=== PATIENT | female | born 1955 | race Caucasian/White ===

== ENCOUNTER 2019-09-30 08:04 | Observation (INO) ==
--- NOTE | 2019-09-09 13:29 | PAT Medication Instructions ---
Medication Instructions Date of Service September 09, 2019 Home Medications acetaminophen 500 mg PO DAILY PRN cholecalciferol (vitamin D3) [Vitamin D3] 50 mcg PO QAM levothyroxine 112 mcg PO QAM losartan 50 mg PO QAM metformin 500 mg PO BID metronidazole 1 applic TOPICAL DAILY potassium citrate 10 meq PO BID pseudoephedrine HCl 30 mg PO Q6H PRN rosuvastatin 10 mg PO QAM STOP taking 24 hours before surgery metronidazole 1 applic TOPICAL DAILY DO NOT take the morning of surgery cholecalciferol (vitamin D3) [Vitamin D3] 50 mcg PO QAM losartan 50 mg PO QAM metformin 500 mg PO BID potassium citrate 10 meq PO BID pseudoephedrine HCl 30 mg PO Q6H PRN Take morning of surgery With a small sip of water, OTHERWISE NOTHING TO EAT OR DRINK AFTER MIDNIGHT: acetaminophen 500 mg PO DAILY PRN (okay to take up to 4 hours prior to surgery if needed) levothyroxine 112 mcg PO QAM rosuvastatin 10 mg PO QAM Take evening before surgery acetaminophen 500 mg PO DAILY PRN (if needed) metformin 500 mg PO BID potassium citrate 10 meq PO BID pseudoephedrine HCl 30 mg PO Q6H PRN (if needed) Other Notes If you have any questions please call us at [phone] or [phone] or [phone] or [phone]
--- NOTE | 2019-09-10 13:59 | Anesthesiology Consultation ---
Date of Service September 10, 2019 Assessment & Plan (1) Encounter for pre-operative examination: - Awaiting surgeon-ordered PCP clearance scheduled 09/21 (Dr. Leblanc). - Check BSG AM DOS Chart Review Chart Review: Patient seen in Pre Admission Testing Teaching & Discussion Pre-Anesthesia Teaching/Discussion Notes: Instructed NPO after midnight before surgery,except medications with 15 cc of water. Medication instructions provided according to the PAT guidelines. History Surgery Operation Date: 09/30/19 08:15 Proposed Procedures p Right Total Knee Arthroplasty - Ronak Chiang MD Height/Weight Height: 5 ft 5 in Weight: 95 kg Allergies Allergy/AdvReac Type Severity Reaction Status Date / Time aspirin Allergy Unknown HIVES, Verified 12/02/14 08:26 SWELLING OF THROAT latex Allergy Unknown HIVES Verified 12/02/14 08:26 Medications Home Medications Medication Instructions Recorded Confirmed Last Taken acetaminophen 500 mg PO DAILY PRN 09/03/19 09/03/19 Unknown cholecalciferol (vitamin D3) 50 mcg PO QAM 09/03/19 09/03/19 Unknown [Vitamin D3] levothyroxine 112 mcg PO QAM 09/03/19 09/03/19 Unknown losartan 50 mg PO QAM 09/03/19 09/03/19 Unknown metformin 500 mg PO BID 09/03/19 09/03/19 Unknown metronidazole 1 applic TOPICAL DAILY 09/03/19 09/03/19 Unknown potassium citrate 10 meq PO BID 09/03/19 09/03/19 Unknown pseudoephedrine HCl 30 mg PO Q6H PRN 09/03/19 09/03/19 Unknown rosuvastatin 10 mg PO QAM 09/03/19 09/03/19 Unknown Past Medical History Medical History Diabetes mellitus, type 2 NIDDM Environmental allergies History of kidney stones Hyperlipidemia Hypertension Hypothyroidism Obesity Osteoarthritis Rosacea Sleep apnea no device Exercise / Class Metabolic Activity III < 4 Walking/Shop/Light housework (cane PRN) Past Family History Family History Aunt Family history of diabetes mellitus Past Surgical History Surgical History History of carpal tunnel surgery of left wrist History of tonsillectomy and adenoidectomy History of total left knee replacement (TKR) Left TKA: 12/02/14: SAB x 1 ar L3-L4 + PNB at [facility], subsequent left knee removal of hemovac drain: 12/04/14: LMA#4 at [facility] Hx of appendectomy Hx of bilateral cataract extraction Hx of section X4 Hx of colonoscopy Hx of cystoscopy SEVERAL Hx of lithotripsy Hx of shoulder surgery RIGHT Past Anesthesia History No Hx of Anesthesia Complications (except PONV/dizziness) and No Family Hx of Anesthesia Complications History of PONV History of PONV (+ PONV/dizziness x 2 episode- improved with prior scope patch use) and Hx of Motion Sickness Social History Smoking Status: Former smoker Do You Dip or Chew Tobacco: No Smoking End Date: Quit 5 YR AGO Hx Alcohol Use: No Hx Substance Use: No Review of Systems Patient denies chest pain, shortness of breath, reflux, cough, wheezing, palpitations. Physical Exam Vital Signs VITALS BP 129/86 P 96 TEMP 98.4 SP02 94%RA RESP 18 PHYSICAL Full neck and c-spine range of motion. Full TMJ range of motion. TMD 2.5 finger breaths Mallampati Score 2 Dentition: intact, several crowns/implant on sides/molars Lungs: clear throughout to auscultation Cardiac: regular rate and rhythm, no murmurs noted Spine: normal Carotid arteries: negative bruit Extremities: no edema Thick neck Testing Laboratory Results 09/10/19 14:26 09/10/19 14:26 PT 10.4 Seconds (9.0-12.0) 09/10/19 14:26 INR 1.0 (0.9-1.1) 09/10/19 14:26 APTT 26.9 Seconds (21.0-31.0) 09/10/19 14:26 Hemoglobin A1c 6.9 % (4.5-5.6) H 09/10/19 14:26 Urine Color Yellow 09/10/19 14:26 Urine Appearance Turbid (Clear) A 09/10/19 14:26 Urine pH 7.0 (4.5-7.5) 09/10/19 14:26 Ur Specific [place] 1.018 (1.000-1.030) 09/10/19 14:26 Urine Protein Negative (Negative) 09/10/19 14:26 Urine Glucose (UA) Negative (Negative) 09/10/19 14:26 Urine Ketones Negative (Negative) 09/10/19 14:26 Urine Nitrite Negative (Negative) 09/10/19 14:26 Ur Leukocyte Esterase Negative (Negative) 09/10/19 14:26 Urine WBC (Auto) 1-5 /hpf (0-5) 09/10/19 14:26 Urine RBC (Auto) 0-4 /hpf (0-4) 09/10/19 14:26 U Hyaline Cast (Auto) 1-5 /lpf (0-5) 09/10/19 14:26 U Epithel Cells (Auto) 5-10 /lpf (0-5) H 09/10/19 14:26 Urine Bacteria (Auto) Negative (Negative) 09/10/19 14:26 Blood Type O Positive 09/10/19 14:26 Antibody Screen NEGATIVE 09/10/19 14:26 Electrocardiogram Date: 09/10/19 SR with first degree AVB at 94bpm. No significant change compared to 11/09/14 per cardiology. Chest X-Ray Date: 09/10/19 Findings: + NAD Stress Test Date: 06/28/16 Type: exercise Exercise stress EKG negative for ischemia or infarction. Normal resting wall motion (all lindo hyperdynamic with exercise). EF 55%. 7 METS. >90% MPHR.
--- NOTE | 2019-09-10 14:48 | XRay Report ---
XR chest Pre-admission PA/Lat CLINICAL HISTORY: Preoperative chest COMPARISON STUDY: 11/09/2014 FINDINGS: The cardiac and mediastinal contours are normal. There is no evidence of focal pulmonary co nsolidation. There is no evidence of failure. No pleural effusions are visualized.[ IMPRESSION: No active disease in the chest. ACT 112: Negative or not required by law. Electronically signed by: Steve Molina M.D. 09/10/2019 2:47 PM
[2019-09-10 15:25] LABS: Basophils # (auto) 0.05 K/uL (0-0.2); Basophils % (auto) 0.5 %; Eosinophils # (auto) 0.24 K/uL (0-0.5); Eosinophils % (auto) 2.5 %; Hematocrit (blood only) 44.6 % (37-47); Hemoglobin 15.2 g/dL (12.0-16.0); Immature Granulocytes # (auto) 0.02 K/uL (0.00-0.02); Immature Granulocytes % (auto) 0.2 %; Lymphocytes # (auto) 3.64 K/uL (1.2-3.4); Lymphocytes % (auto) 38.6 %; Mean Corpuscular Hemoglobin 31.3 pg (25-34); Mean Corpuscular Hgb Conc 34.1 g/dL (32-36); Mean Corpuscular Volume 91.8 fL (80-100); Mean Platelet Volume 10.5 fL (7.4-10.4); Monocytes # (auto) 0.95 K/uL (0.11-0.59); Monocytes % (auto) 10.1 %; Neutrophils # (auto) 4.54 K/uL (1.4-6.5); Neutrophils % (auto) 48.1 %; Platelet Count 296 K/uL (130-400); RDW Standard Deviation 47.1 fL (36.4-46.3); Red Blood Count 4.86 M/uL (4.2-5.4); White Blood Count 9.44 K/uL (4.8-10.8)
[2019-09-10 15:38] LABS: Appearance Urine Turbid (Clear); Bacteria Urine Automated Negative (Negative); Bilirubin Urine Negative (Negative); Blood Urine Negative (Negative); Color Urine Yellow; Glucose Urine UA Negative (Negative); Ketones Urine Negative (Negative); Leukocyte Esterase Urine Negative (Negative); Nitrite Urine Negative (Negative); Protein Urine Negative (Negative); RBC Urine Automated 0-4 /hpf (0-4); Specific Gravity Urine 1.018 (1.000-1.030); Urobilinogen Urine Negative (Negative)
[2019-09-10 15:45] LABS: Albumin Level 3.6 gm/dl (3.4-5.0); BUN Creatinine Ratio 18.7 (10-20); Calcium 10.5 mg/dl (8.5-10.1); Creatinine Clr Calc Pharmacy 75.3 ml/min; Est GFR (African American) 82.7; Est GFR (Non-African American) 71.4; Potassium 4.4 mmol/L (3.5-5.1)
[2019-09-10 15:52] LABS: Partial Thromboplastin Time 26.9 Seconds (21.0-31.0); Prothrombin Time 10.4 Seconds (9.0-12.0)
--- NOTE | 2019-09-10 17:14 | Electrocardiogram Report ---
Test Reason : Blood Pressure : / mmHG Vent. Rate : 094 BPM Atrial Rate : 094 BPM P-R Int : 220 ms QRS Dur : 098 ms QT Int : 356 ms P-R-T Axes : 066 040 049 degrees QTc Int : 445 ms Sinus rhythm with 1st degree A-V block Otherwise normal ECG When compared with ECG of 09-NOV-2014 10:35, No significant change was found Confirmed by Aaron London ([id number]) on 09/10/2019 5:13:49 PM Referred By: Ronak Chiang Confirmed By:Aaron London
[2019-09-11 05:32] LABS: Estimated Average Glucose 151 mg/dl; Hemoglobin A1C 6.9 % (4.5-5.6)
--- NOTE | 2019-09-25 19:44 | History & Physical Report ---
Date of Service September 25, 2019 Assessment & Plan (1) Primary osteoarthritis of right knee: Treatment options discussed. She has failed conservative measures as above. Risks, benefits and alternatives to surgery including but not limited to infection, DVT, pain, stiffness, need for revision surgery, damage to blood vessels, damage to nerves, PE, , were discussed with the patient and they wish to proceed. Plan will be for right total knee arthroplasty at [facility] on 09/30/19. Will plan on Xarelto post operatively for DVT prophylaxis due to an aspirin allergy. Will plan on not using a Hemovac drain. May consider antibiotic prophylaxis with Cefadroxil x 1 week. We may also use Prineo/dermabond dressing vs alejandro for skin closure. All questions answered. She will follow up post operatively. History of Present Illness Chief Complaint: Right knee pain Primary Care Provider: Toney Leblanc 64 year old female with PMHx significant for HTN, high cholesterol, NEDRA, DM2, and hypothyroidism who presents with worsening right knee pain. She has previously underwent Left TKA and has done well. She has tried various conservative therapies including cortisone injections and viscoelastic injections and continues to have significant pain. She has difficulty completing her daily activities and would like to proceed with right total knee ar throplasty. Patient denies headaches, sweats, fevers, chills, double vision, blurred vision, cough, sore throat, dysphagia, chest pain, sob, wheezing, n/v/d/c, numbness, tingling, fatigue, urinary symptoms, mood disorders. ROS positive for right knee pain and stiffness. Allergies Allergy/AdvReac Type Severity Reaction Status Date / Time aspirin Allergy Unknown HIVES, Verified 12/02/14 08:26 SWELLING OF THROAT latex Allergy Unknown HIVES Verified 12/02/14 08:26 Home Medications Home Medications Medication Instructions Recorded Confirmed Type acetaminophen 500 mg PO DAILY PRN 09/03/19 09/03/19 History cholecalciferol (vitamin D3) 50 mcg PO QAM 09/03/19 09/03/19 History [Vitamin D3] levothyroxine 112 mcg PO QAM 09/03/19 09/03/19 History losartan 50 mg PO QAM 09/03/19 09/03/19 History metformin 500 mg PO BID 09/03/19 09/03/19 History metronidazole 1 applic TOPICAL DAILY 09/03/19 09/03/19 History potassium citrate 10 meq PO BID 09/03/19 09/03/19 History pseudoephedrine HCl 30 mg PO Q6H PRN 09/03/19 09/03/19 History rosuvastatin 10 mg PO QAM 09/03/19 09/03/19 History Past Med/Surg History Medical History Diabetes mellitus, type 2 NIDDM Environmental allergies History of kidney stones Hyperlipidemia Hypertension Hypothyroidism Obesity Osteoarthritis Rosacea Sleep apnea no device Surgical History History of carpal tunnel surgery of left wrist History of tonsillectomy and adenoidectomy History of total left knee replacement (TKR) Left TKA: 12/02/14: SAB x 1 ar L3-L4 + PNB at [facility], subsequent left knee removal of hemovac drain: 12/04/14: LMA#4 at [facility] Hx of appendectomy Hx of bilateral cataract extraction Hx of section X4 Hx of colonoscopy Hx of cystoscopy SEVERAL Hx of lithotripsy Hx of shoulder surgery RIGHT Family History Aunt Family history of diabetes mellitus Social History Preferred Language: Greenlandic Communication Ability: Effective Beliefs That Will Affect Care: None Current Living Situation: Spouse Feels Safe at Home: Yes Safety Concerns: Feels Safe At This Time Smoking Status: Former smoker Do You Dip or Chew Tobacco: No ; Smoking End Date: Quit 5 YR AGO ; Second Hand Exposure: No ; Hx Alcohol Use: No Hx Substance Use: No Review of Systems All systems reviewed & are unremarkable except as noted in HPI & below Physical Exam Constitutional: well developed and well nourished; no acute distress Eyes: PERRL, conjunctivae normal, anicteric sclerae ENMT: external ear and nose normal, oropharynx normal Neck: trachea midline, no thyromegaly Respiratory: normal respiratory effort, lungs clear to auscultation Cardiovascular: RRR, no murmur, no edema Musculoskeletal: Right knee-Medial joint line tenderness. ROM with crepitus 0- 130 with mild crepitus. She is stable to valgus and varus stress tests. Positive Oc's Skin: no rashes, warm and dry Neurologic: patellar DTR's 2+ bilat, sensation intact Psychiatric: A+Ox3, euthymic affect Results & Data Laboratory Results Lab Results 09/10/19 09/10/19 09/10/19 Range/Units 14:26 14:26 14:26 WBC 9.44 (4.8-10.8) K/uL RBC 4.86 (4.2-5.4) M/uL Hgb 15.2 (12.0-16.0) g/dL Hct 44.6 (37-47) % MCV 91.8 (80-100) fL MCH 31.3 (25-34) pg MCHC 34.1 (32-36) g/dL RDW Std Deviation 47.1 H (36.4-46.3) fL RDW Coeff of Chiquita 14.0 (11.5-14.5) % Plt Count 296 (130-400) K/uL MPV 10.5 H (7.4-10.4) fL Immature Gran % (Auto) 0.2 % Neut % (Auto) 48.1 % Lymph % (Auto) 38.6 % Faulk % (Auto) 10.1 % Eos % (Auto) 2.5 % Baso % (Auto) 0.5 % Immature Gran # (Auto) 0.02 (0.00-0.02) K/uL Neut # (Auto) 4.54 (1.4-6.5) K/uL Lymph # (Auto) 3.64 H (1.2-3.4) K/uL Faulk # (Auto) 0.95 H (0.11-0.59) K/uL Eos # (Auto) 0.24 (0-0.5) K/uL Baso # (Auto) 0.05 (0-0.2) K/uL PT 10.4 (9.0-12.0) Seconds INR 1.0 (0.9-1.1) APTT 26.9 (21.0-31.0) Seconds PTT Ratio 1.0 Sodium 137 (136-145) mmol/L Potassium 4.4 (3.5-5.1) mmol/L Chloride 105 (98-107) mmol/L Carbon Dioxide 30 (21-32) mmol/L Anion Gap 2.0 L (3-11) BUN 16 (7-18) mg/dl Creatinine 0.86 (0.6-1.2) mg/dl Est Cr Clr Drug Dosing 75.3 ml/min Est GFR ( Amer) 82.7 Est GFR (Non-Af Amer) 71.4 BUN/Creatinine Ratio 18.7 (10-20) Glucose 127 H (70-99) mg/dl Estimat Average Glucose mg/dl Hemoglobin A1c (4.5-5.6) % Calcium 10.5 H (8.5-10.1) mg/dl Albumin 3.6 (3.4-5.0) gm/dl Urine Color Urine Appearance (Clear) Urine pH (4.5-7.5) Ur Specific [place] (1.000-1.030) Urine Protein (Negative) Urine Glucose (UA) (Negative) Urine Ketones (Negative) Urine Blood (Negative) Urine Nitrite (Negative) Urine Bilirubin (Negative) Urine Urobilinogen (Negative) Ur Leukocyte Esterase (Negative) Urine WBC (Auto) (0-5) /hpf Urine RBC (Auto) (0-4) /hpf U Hyaline Cast (Auto) (0-5) /lpf U Epithel Cells (Auto) (0-5) /lpf Urine Bacteria (Auto) (Negative) Blood Type Antibody Screen 09/10/19 09/10/19 09/10/19 Range/Units 14:26 14:26 14:26 WBC (4.8-10.8) K/uL RBC (4.2-5.4) M/uL Hgb (12.0-16.0) g/dL Hct (37-47) % MCV (80-100) fL MCH (25-34) pg MCHC (32-36) g/dL RDW Std Deviation (36.4-46.3) fL RDW Coeff of Chiquita (11.5-14.5) % Plt Count (130-400) K/uL MPV (7.4-10.4) fL Immature Gran % (Auto) % Neut % (Auto) % Lymph % (Auto) % Faulk % (Auto) % Eos % (Auto) % Baso % (Auto) % Immature Gran # (Auto) (0.00-0.02) K/uL Neut # (Auto) (1.4-6.5) K/uL Lymph # (Auto) (1.2-3.4) K/uL Faulk # (Auto) (0.11-0.59) K/uL Eos # (Auto) (0-0.5) K/uL Baso # (Auto) (0-0.2) K/uL PT (9.0-12.0) Seconds INR (0.9-1.1) APTT (21.0-31.0) Seconds PTT Ratio Sodium (136-145) mmol/L Potassium (3.5-5.1) mmol/L Chloride (98-107) mmol/L Carbon Dioxide (21-32) mmol/L Anion Gap (3-11) BUN (7-18) mg/dl Creatinine (0.6-1.2) mg/dl Est Cr Clr Drug Dosing ml/min Est GFR ( Amer) Est GFR (Non-Af Amer) BUN/Creatinine Ratio (10-20) Glucose (70-99) mg/dl Estimat Average Glucose 151 mg/dl Hemoglobin A1c 6.9 H (4.5-5.6) % Calcium (8.5-10.1) mg/dl Albumin (3.4-5.0) gm/dl Urine Color Yellow Urine Appearance Turbid A (Clear) Urine pH 7.0 (4.5-7.5) Ur Specific [place] 1.018 (1.000-1.030) Urine Protein Negative (Negative) Urine Glucose (UA) Negative (Negative) Urine Ketones Negative (Negative) Urine Blood Negative (Negative) Urine Nitrite Negative (Negative) Urine Bilirubin Negative (Negative) Urine Urobilinogen Negative (Negative) Ur Leukocyte Esterase Negative (Negative) Urine WBC (Auto) 1-5 (0-5) /hpf Urine RBC (Auto) 0-4 (0-4) /hpf U Hyaline Cast (Auto) 1-5 (0-5) /lpf U Epithel Cells (Auto) 5-10 H (0-5) /lpf Urine Bacteria (Auto) Negative (Negative) Blood Type O Positive Antibody Screen NEGATIVE Diagnostic Findings Right knee: Bone on bone medial compartment with osteophyte formation medial tibial plateau and medial femoral condyle. Osteophyte lateral tibial plateau. Subchondral sclerosis. Osteophyte formation PF joint.
[~2019-09-30 08:04] MED LIST: ACETAMINOPHEN 500 MG TAB PO SCH; BUPIVACAINE 0.5 % 5 MG/1 ML PF 10ML VIAL ONE; BUPIVACAINE/EPINEPHRINE 0.25% 1:200,000 30 ML VIAL ONE; CEFAZOLIN 2000MG 2,000 MG/15 ML SYR IV SCH; CeleBREX 200 MG CAP PO SCH; FAMOTIDINE 20 MG TAB PO SCH; GABAPENTIN 600 MG DOSE PO SCH; LR 500ML BOLUS, THEN 15ML/HR IV SCH; METOCLOPRAMIDE HCL 10 MG TABLET PO SCH; ROPIVACAINE 0.5% HCL/PF 150 MG, BUPIVACAINE 0.5% MPF 30 ML, EPINEPHrine 30MG/30ML (OR U... INSTIL SCH; SCOPOLAMINE 1.5 MG TDSY TD SCH; SODIUM CHLORIDE 0.9% 1,000 ML IV SCH; TRANEXAMIC ACID 1,000 MG **IV Intra-op IV SCH; TRANEXAMIC ACID 1,000 MG **IV Pre-op IV SCH; [UNRECOGNIZED DRUG - REMARK] SCH; dexAMETHasone 4 MG TAB PO SCH
[2019-09-30] MEDS ORDERED: ORTHO JOINT ANESTHETIC ONE ×2 (08:05→09:39)
[2019-09-30] MEDS ORDERED: BACITRACIN INJ 50,000 UNIT VIAL ONE (08:05)
[2019-09-30] MEDS ORDERED: fentaNYL citrate 100 MCG/2 ML VIAL ONE (08:36)
[2019-09-30] MEDS ORDERED: MIDAZOLAM HCL 1 MG/ML 2ML VIAL ONE (08:36)
--- NOTE | 2019-09-30 08:42 | History & Physical Bridge Note ---
Date of Service September 30, 2019 History & Physical Bridge Note I have examined the patient, reviewed the History & Physical and in the interval since the performance of the History & Physical I have noted the following changes of clinical significance: no changes noted
[2019-09-30] MEDS ORDERED: Nursing to Pharmacy Communication ONE (08:48)
[2019-09-30] MEDS ORDERED: fentaNYL citrate 100 MCG/2 ML VIAL IV PRN (09:33)
[2019-09-30] MEDS ORDERED: ATROPINE SULFATE 0.1 MG/ML 10ML SYR IV PRN (09:33)
[2019-09-30] MEDS ORDERED: ePHEDrine sulfate 50 MG/ML AMP IV PRN (09:33)
[2019-09-30] MEDS ORDERED: ONDANSETRON INJ 2 MG/ML 2 ML VIAL IV PRN ×2 (09:33→13:14)
[2019-09-30] MEDS ORDERED: HYDROmorphone INJ 2 MG/ML SYR/VIAL IV PRN (09:33)
[2019-09-30] MEDS ORDERED: PROMETHAZINE HCL 12.5 MG in SODIUM CHLORIDE 0.9% 50 ML IV PRN (09:33)
[2019-09-30] MEDS ORDERED: LIDOCAINE HCL 2% 2 ML VIAL/AMP(20MG/ML) INFIL ONE (10:11)
[2019-09-30] MEDS ORDERED: PROPOFOL IV EMULSION 10 MG/ML 20 ML VIAL IV ONE (10:11)
--- NOTE | 2019-09-30 11:18 | Operative Report ---
Post Operative Report Pre & Post Diagnosis Operation Date: 09/30/19 09:55 Pre-Op Diagnosis: Right Knee Osteoarthritis Post-Op Diagnosis: Right Knee Osteoarthritis I identified the patient and participated in the time-out.: Yes Procedure Operation Date: 09/30/19 09:55 Actual Procedures p Right Total Knee Arthroplasty(Right) - Ronak Chiang MD Surgeon Ronak Chiang MD Corporate Safety Director Jose Daniel Cagle PA-C Estimated Blood Loss 20 Findings Consistent with Post-Op Diagnosis Specimens Bone and tissue Drains None Anesthesia Type MAC Spinal Regional Complications none Disposition Accompanied Patient To Recovery: No Disposition: Recovery Room Indications The patient is a 64-year-old female longstanding arthritic change the right knee. She is [id number] medial compartment. She is failed conservative measures including injection, rehab. She is allergic to nonsteroidal anti- inflammatories. She wishes to proceed with right total knee arthroplasty. Description of Procedure Risks benefits and alternatives of surgery including but not limited to infection, DVT, pain, stiffness, need for surgery, damage to blood vessels, damage to nerves or risks of anesthesia were discussed with the patient and they wished to proceed. The patient was identified and the laterality was confirmed and marked. They received a preoperative antibiotic as well as a spinal anesthetic and an abductor canal block. A well-padded tourniquet was applied and then the limb was prepped and draped in standard manner with ChloraPrep. The limb was exsanguinated and the tourniquet was inflated. I made a standard anterior incision. I sharply incised the skin then utilized Bovie electrocautery to achieve hemostasis. I made a medial parapatellar arthrotomy and mobilized the patella laterally. I then excised the anterior horns of the medial and lateral meniscus as well as the infrapatellar fat pad. I elevated a portion of the MCL off of the tibia. I then pinned into place a patient-matched distal femoral cutting guide and made my distal femoral resection. I then pinned into place the 5 in 1 femoral cutting guide. I made my anterior, posterior and chamfer cuts. I then excised the cruciates and the remaining portions of the menisci. I then pinned into place a patient- matched tibial cutting guide and made my tibial resection. I then pinned into place the tibial plate a utilizing alignment pollo to confirm rotation. I then cut for the post. Utilizing a lamina plating technician and I then removed posterior osteophytes off the femur. I then placed a trial femur into position and cut for the trochlear component. I then sequentially trialed to size the polyethylene until there was good soft tissue balancing and range of motion. I then prepared the patella with a freehand cut utilizing sagittal saw. I sized and drilled for the patella. There was good tracking to the patella no lateral release was needed. All the trial components were removed. The deep tissues were anesthetized with an ortho mix solution. Then with Simplex HV with gentamicin cement, I cemented my definitive components. Definitive components, Tapia and Nephew Chakaney 2: Femur 4 Tibia 3 Poly 10 Patella 32 oval A betadine soak was performed. The arthrotomy was closed with interrupted #1 Vicryl suture subcutaneous tissue was closed with interrupted 2-0 Vicryl suture. The skin was closed with with prineo. An Acticoat and Arianne dressing were placed. Sterile dressings were applied. All needle and sponge counts were correct at the end of the procedure patient was transferred to the PACU in stable condition without apparent complication. The PA-C was necessary for assistance with procedure for assistance in positioning, prepping, draping, retraction and closure. I attest to the content of the Intraoperative Record and any orders documented therein. Any exceptions are noted below.
--- NOTE | 2019-09-30 12:42 | XRay Report ---
XR knee RT 1 or 2V routine CLINICAL HISTORY: Surgical Post Op COMPARISON: Knee radiographs January 12, 2015. FINDINGS: Alignment of the total right knee arthroplasty is anatomic. No fracture or unexpected radi opaque foreign body. IMPRESSION: Expected findings following total right knee arthroplasty. ACT 112: Negative or not required by law. Electronically signed by: Francisco Freeman M.D. 09/30/2019 12:41 PM
--- NOTE | 2019-09-30 12:43 | Anesthesiology Progress Note ---
Date of Service September 30, 2019 Anesthesia Post Procedure Vital Signs Vital Signs: Temp Pulse Pulse Resp BP BP Pulse Ox 09/30/19 12:40 95 H 15 108/71 95 09/30/19 12:35 96 H 16 96/68 L 96 09/30/19 12:25 99 H 16 98/66 L 95 09/30/19 12:15 103 H 16 105/66 96 09/30/19 12:05 37.1 C 107 H 16 100/58 L 95 09/30/19 08:43 37.2 C 106 H 20 129/86 94 Transfer of Care Handoff Completed per policy Notes Mental Status: alert / awake / arousable and participated in evaluation Patient Amnestic to Procedure: Yes Nausea / Vomiting: adequately controlled Pain: adequately controlled Airway Patency, RR, SpO2: stable & adequate BP & HR: stable & adequate Hydration State: stable & adequate Anesthetic Complications: no major complications apparent and Pt Satisfied with anesthetic care
[2019-09-30] MEDS ORDERED: bisacodyL 10 MG SUPP PR PRN (13:14)
[2019-09-30] MEDS ORDERED: NALOXONE HCL 0.4 MG/1 ML VIAL/CARP IV PRN (13:14)
[2019-09-30] MEDS ORDERED: MAGNESIUM HYDROXIDE SUSP 30 ML UDC PO PRN (13:14)
[2019-09-30] MEDS ORDERED: HYDROmorphone INJ 0.5 MG/0.5 ML SYR IV PRN (13:14)
[2019-09-30] MEDS ORDERED: METOCLOPRAMIDE HCL INJ 5 MG/ML 2 ML VIAL IV PRN (13:14)
[2019-09-30] MEDS ORDERED: PHARMACY GLYCEMIC MGMT CONSULT SCH (13:39)
--- NOTE | 2019-09-30 13:39 | Pharmacy Report ---
Glycemic Control Consultation - Date of Service September 30, 2019 - Scope Scope: Glycemic Pharmacist consulted by Jose Daniel Cagle PA-C on 09/30/19 for glycemic control and to write orders per [facility] inpatient glycemic control protocol - Objective Weight: 91.6 kg Accuchecks BSG (last 24hrs): 09/30/19 09/30/19 08:28 12:09 POC Glucose 182 H 164 H HbA1c: Hemoglobin A1c 6.9 % (4.5-5.6) H 09/10/19 14:26 - Recent Pertinent Medications Outpatient Anti-diabetic Regimen: * Metformin 500mg PO BID * A1c = 6.9 % 09/10/19 Risk Factors for Insulin Resistance: * Steroids: Dexamethasone 8mg PO preop * Recent Surgery: s/p TKA * Diet: Type 2 DM - Assessment & Plan Assessment & Plan: ASSESSMENT: * 64 year old female s/p TKA. Type 2 DM managed on only metformin as outpatient, had PO steroid preop. * Oral agents are not recommended for inpatient use d/t drug interactions, changing PO intake, and difficulty titrating for acute hyper/hypoglycemia. ADA recommends re-initiating outpatient oral agents 1-2 days prior to discharge if/when appropriate if they were held on admission. * Will hold oral agents for admission and utilize SQ basal bolus insulin regimen which is the recommended regimen for inpatient glycemic control. * Will initiate weight based insulin dosing for insulin mag patient and titrate based on BSG trends. * Will give one time dose of NPH to cover effects of PO dexamethasone given preoperatively. Only 0.16unit/kg, as patient only had 1 time PO dose of dexamethasone, and BSG 164mg/dl and A1c 6.9%. * Will loosen CF/CR as steroid effects wear off. * ADA & AACE recommend a goal blood sugar range 140-180 mg/dl for the majority of critically ill & non-critically ill patients. However, more stringent targets may be selected in individual cases. Will utilize more stringent goal of 110-140mg/dl based on patient age & comorbidities. Additionally, tighter glycemic control is warranted to facilitate wound/infection healing. PLAN FOR INPATIENT GLYCEMIC CONTROL: * Holding outpatient oral diabetes medications * possibly restart metformin tomorrow based on SCr and if patient tolerating diet * Basal insulin * NPH 15 units SQ x 1 dose now * Bolus insulin * NovoLog per scale ACHS or Q6hrs while NPO * Goal Range: Low 110 mg/dL - High 140 mg/dL * Correction Factor: 15 mg/dL/unit * Nutritional / Prandial insulin per carb ratio of 1 unit per 6 grams CHO consumed * Please note that the plan above was derived based on current level of insulin resistance and hospital stress. These recommendations are appropriate for inpatient admission only. Plan of care upon discharge will need to be reassessed to avoid potential outpatient hypo/hyperglycemia. Thank you.
[2019-09-30] MEDS ORDERED: GLUCAGON FOR INJ 1 MG VIAL IM PRN (13:45)
[2019-09-30] MEDS ORDERED: GLUCOSE 10 TABS/TUBE PO PRN (13:45)
[2019-09-30] MEDS ORDERED: DEXTROSE 50% 50 ML SYRINGE IV PRN (13:45)
[2019-09-30] MEDS ORDERED: GLUCOSE 40% GEL 15 GM TUBE PO PRN (13:45)
[2019-09-30] MEDS ORDERED: NovoLIN-N (NPH) PER UNIT CHARGE SQ ONE (13:45)
[2019-09-30] MEDS ORDERED: CARBOHYDRATES FOR HYPOGLYCEMIA PO PRN (13:45)
[2019-09-30] MEDS: SODIUM CHLORIDE 0.9% 1000ML 1,000 ML IV SCH ×2 (14:34→23:27)
[2019-09-30] MEDS: INSULIN ASPART 100 UNITS/ML 3 ML PEN SC SCH ×3 (14:34→21:14)
--- NOTE | 2019-09-30 14:54 | Hospitalist Consultation ---
Date of Consultation September 30, 2019 Assessment & Plan (1) Primary osteoarthritis of right knee: s/p R TKA on 09/[address] Chiang Pre-op Hb 15.2 As per ortho (2) Sleep apnea: States untx (3) Hypothyroidism: continue home meds (4) Hypertension: continue home meds (5) Hyperlipidemia: continue home meds (6) Diabetes mellitus, type 2: Resume metformin once reliable PO intake SSI PRN A1c 6.9 (7) DVT prophylaxis: As per ortho History of Present Illness Attending Physician: Ronak Chiang MD History of Present Illness 64 y/o F who was admitted on 09/30 s/p R TKA with Dr. Chiang. Pt is doing well post-op. She has no pain at this time. Tolerating PO without issue. Pt denies fever, SOB, chest pain, abd pain, n/v/c/d, LE swelling. Allergies Allergy/AdvReac Type Severity Reaction Status Date / Time aspirin Allergy Unknown HIVES, Verified 12/02/14 08:26 SWELLING OF THROAT latex Allergy Unknown HIVES Verified 12/02/14 08:26 methylprednisolone Allergy Shakiness Verified 09/30/19 08:27 [From Medrol] Home Medications Home Medications Medication Instructions Recorded Confirmed Type acetaminophen 500 mg PO DAILY PRN 09/03/19 09/30/19 History cholecalciferol (vitamin D3) 50 mcg PO QAM 09/03/19 09/30/19 History [Vitamin D3] levothyroxine 112 mcg PO QAM 09/03/19 09/30/19 History losartan 50 mg PO QAM 09/03/19 09/30/19 History metformin 500 mg PO BID 09/03/19 09/30/19 History metronidazole 1 applic TOPICAL DAILY 09/03/19 09/30/19 History potassium citrate 10 meq PO BID 09/03/19 09/30/19 History pseudoephedrine HCl 30 mg PO Q6H PRN 09/03/19 09/30/19 History rosuvastatin 10 mg PO QAM 09/03/19 09/30/19 History Patient History Medical History Diabetes mellitus, type 2 NIDDM Environmental allergies History of kidney stones Hyperlipidemia Hypertension Hypothyroidism Obesity Osteoarthritis Rosacea Sleep apnea no device Surgical History History of carpal tunnel surgery of left wrist History of tonsillectomy and adenoidectomy History of total left knee replacement (TKR) Left TKA: 12/02/14: SAB x 1 ar L3-L4 + PNB at [facility], subsequent left knee removal of hemovac drain: 12/04/14: LMA#4 at [facility] Hx of appendectomy Hx of bilateral cataract extraction Hx of section X4 Hx of colonoscopy Hx of cystoscopy SEVERAL Hx of lithotripsy Hx of shoulder surgery RIGHT Family History Aunt Family history of diabetes mellitus Social History Preferred Language: Surinamese Communication Ability: Effective Beliefs That Will Affect Care: None Current Living Situation: Spouse Feels Safe at Home: Yes Safety Concerns: Feels Safe At This Time Smoking Status: Former smoker Do You Dip or Chew Tobacco: No ; Smoking End Date: Quit 5 YR AGO ; Second Hand Exposure: No ; Hx Alcohol Use: No Hx Substance Use: No Review of Systems Review of Systems: Pertinent positives and negatives reviewed in HPI--all others negative Physical Exam Constitutional: WD/WN, vitals as above Eyes: normal visual medina by confrontation and + anicteric sclerae Neck: normal visual inspection and trachea midline Respiratory: normal respiratory effort, lungs clear to auscultation Cardiovascular: Rate/Rhythm: regular rate and regular rhythm Gastrointestinal (Abdomen): Inspection/Auscultation: abdomen not distended Percussion/Palpation: abdomen soft; abdomen nontender Musculoskeletal: Head/Neck/Chest: normocephalic and head atraumatic negative for edema, peripheral pulses intact Skin: no rashes, warm and dry Neurologic: awake; not confused Speech / Cognition: normal speech Psychiatric: A+Ox3, euthymic affect Results & Data ([facility]) Vital Signs (Past 12 Hours) Vital Signs Temp Pulse Pulse Resp BP BP Pulse Ox 09/30/19 14:15 36.9 C 84 16 102/72 96 09/30/19 13:45 82 18 104/73 96 09/30/19 13:15 37.0 C 87 18 103/69 97 09/30/19 13:00 37.2 C 93 H 17 102/73 95 09/30/19 12:50 91 H 16 98/70 L 98 09/30/19 12:40 95 H 15 108/71 95 09/30/19 12:35 96 H 16 96/68 L 96 09/30/19 12:25 99 H 16 98/66 L 95 09/30/19 12:15 103 H 16 105/66 96 09/30/19 12:05 37.1 C 107 H 16 100/58 L 95 09/30/19 08:43 37.2 C 106 H 20 129/86 94 Diagnostic Findings CXR: neg for acute PG Care Time/CCT Total # of Minutes Spent Total Time Spent with Patient: Total time spent is greater than 50% in coordination of care (as documented) at patient's floor/unit and/or counseling patient: Coding Level of Care Code 44299 Inpt Consult Level 4 Diagnoses Primary osteoarthritis of right knee M17.11 Sleep apnea G47.30 Hypothyroidism E03.9 Hypertension I10 Hyperlipidemia E78.5 Diabetes mellitus, type 2 E11.9 DVT prophylaxis Z29.9
[2019-09-30] MEDS: CHECK SCOPOLAMINE PATCH PLACEMENT SCH ×2 (15:24→23:27)
[2019-09-30] MEDS: ACETAMINOPHEN 500 MG TAB PO SCH (16:22)
[2019-09-30] MEDS: CEFAZOLIN 2000MG 2,000 MG/15 ML SYR IV SCH (18:31)
[2019-09-30] MEDS: DOCUSATE SODIUM 100 MG CAP PO SCH (21:15)
[2019-09-30] MEDS: SENNA 8.6 MG TAB PO SCH (21:15)
[2019-09-30] MEDS: POTASSIUM CITRATE 10 MEQ TAB PO SCH (21:15)
[2019-09-30] MEDS: OXYCODONE HCL IR 5 MG TAB (IMMEDIATE RELEASE) PO PRN (22:11)
[2019-10-01] MEDS: CEFAZOLIN 2000MG 2,000 MG/15 ML SYR IV SCH (02:07)
[2019-10-01 04:58] LABS: Hematocrit (blood only) 36.7 % (37-47); Hemoglobin 12.5 g/dL (12.0-16.0); Mean Corpuscular Hemoglobin 30.6 pg (25-34); Mean Corpuscular Hgb Conc 34.1 g/dL (32-36); Mean Platelet Volume 10.3 fL (7.4-10.4); Platelet Count 241 K/uL (130-400); Red Blood Count 4.08 M/uL (4.2-5.4); White Blood Count 15.18 K/uL (4.8-10.8)
[2019-10-01] MEDS: OXYCODONE HCL IR 5 MG TAB (IMMEDIATE RELEASE) PO PRN ×4 (05:06→21:11)
[2019-10-01] MEDS: ACETAMINOPHEN 500 MG TAB PO SCH ×3 (05:07→21:10)
[2019-10-01] MEDS: LEVOTHYROXINE SODIUM 112 MCG TABLET PO SCH (05:07)
[2019-10-01 05:30] LABS: BUN Creatinine Ratio 25.1 (10-20); Calcium 9.4 mg/dl (8.5-10.1); Creatinine Clr Calc Pharmacy 63.6 ml/min; Est GFR (Non-African American) 59.5; Potassium 3.9 mmol/L (3.5-5.1)
--- NOTE | 2019-10-01 07:13 | Orthopedic Progress Note ---
Date of Service October 01, 2019 Assessment & Plan (1) S/P total knee arthroplasty: POD#1 Right TKA -Pain management -DVT prophylaxis-Xarelto 10mg QD x 1 mo -PT/OT -AM labs- hemoglobin 12.5 this am. Acute blood loss anemia surgical loss vs dilutional effect -Discharge planning-home with HHPT likely tomorrow. Will discharge with 1 week fo Cefadroxil as antibiotic prophyalxis. Subjective Patient is POD#1 right TKA. She is doing well, has some stiffness but pain well controlled. She has no other complaints. Denies chest pain, sob, fever/chills, dizziness, n/v/d. Review of Systems Review of Systems: All systems reviewed & are unremarkable except as noted in HPI & below Physical Exam Physical Exam: Resting in bed comfortably. Dressing to right knee is c/d/i. Calves are soft and nontender. Distally n/v status and sensation intact. Toes mobile, good dorsiflexion. Constitutional: well developed and well nourished; no acute distress Results & Data ([facility]) Vital Signs (Past 12 Hours) Vital Signs Temp Pulse Resp BP BP Pulse Ox 10/01/19 03:11 37.1 C 63 14 110/73 94 09/30/19 23:23 36.5 C 68 16 103/67 96 09/30/19 22:46 36.6 C 60 16 103/66 96 09/30/19 19:28 36.3 C L 71 16 95/62 L 95 Laboratory Results H & H 09/10/19 10/01/19 Range/Units 14:26 04:40 Hgb 15.2 12.5 (12.0-16.0) g/dL Hct 44.6 36.7 L (37-47) % Coagulation 09/10/19 Range/Units 14:26 INR 1.0 (0.9-1.1) (1) S/P total knee arthroplasty Laterality: right Qualified Code(s): Z96.651 - Presence of right artificial knee joint
--- NOTE | 2019-10-01 08:42 | Anesthesiology Progress Note ---
Date of Service October 01, 2019 Anesthesia Post Procedure Vital Signs Vital Signs: Temp Pulse Pulse Resp BP BP Pulse Ox 10/01/19 07:39 36.4 C L 10/01/19 07:12 61 16 107/73 94 10/01/19 03:11 37.1 C 63 14 110/73 94 09/30/19 23:23 36.5 C 68 16 103/67 96 09/30/19 22:46 36.6 C 60 16 103/66 96 09/30/19 19:28 36.3 C L 71 16 95/62 L 95 09/30/19 16:19 36.5 C 84 16 106/71 97/66 L 95 09/30/19 15:19 36.4 C L 84 14 108/74 97 09/30/19 14:15 36.9 C 84 16 102/72 96 09/30/19 13:45 82 18 104/73 96 09/30/19 13:15 37.0 C 87 18 103/69 97 09/30/19 13:00 37.2 C 93 H 17 102/73 95 09/30/19 12:50 91 H 16 98/70 L 98 09/30/19 12:40 95 H 15 108/71 95 09/30/19 12:35 96 H 16 96/68 L 96 09/30/19 12:25 99 H 16 98/66 L 95 09/30/19 12:15 103 H 16 105/66 96 09/30/19 12:05 37.1 C 107 H 16 100/58 L 95 09/30/19 08:43 37.2 C 106 H 20 129/86 94 Pain Intensity Right Knee: Pain Intensity: 5 Notes Mental Status: alert / awake / arousable and participated in evaluation Patient Amnestic to Procedure: Yes Nausea / Vomiting: adequately controlled Pain: adequately controlled Airway Patency, RR, SpO2: stable & adequate BP & HR: stable & adequate Hydration State: stable & adequate Neuraxial Anesthesia: was administered and sensory block resolved Anesthetic Complications: no major complications apparent and Pt Satisfied with anesthetic care
[2019-10-01] MEDS: ROSUVASTATIN CALCIUM 10 MG TAB PO SCH (09:01)
[2019-10-01] MEDS: LOSARTAN POTASSIUM 50 MG TAB PO SCH (09:01)
[2019-10-01] MEDS: CHOLECALCIFEROL (VITAMIN D) 400 UNITS TABLET PO SCH (09:01)
[2019-10-01] MEDS: DOCUSATE SODIUM 100 MG CAP PO SCH ×2 (09:01→17:22)
[2019-10-01] MEDS: POTASSIUM CITRATE 10 MEQ TAB PO SCH ×2 (09:01→21:10)
[2019-10-01] MEDS: MULTIVITAMIN TAB PO SCH (09:01)
[2019-10-01] MEDS: INSULIN ASPART 100 UNITS/ML 3 ML PEN SC SCH ×4 (09:04→21:09)
[2019-10-01] MEDS: RIVAROXABAN 10 MG TABLET PO SCH (09:53)
--- NOTE | 2019-10-01 13:26 | Hospitalist Progress Note ---
Date of Service October 01, 2019 Assessment & Plan (1) Primary osteoarthritis of right knee: s/p R TKA on 09/[address] Chiang Pre-op Hb 15.2 As per ortho, planning for cefadroxil x1 week for prophylaxis (2) Sleep apnea: States untx (3) Hypothyroidism: continue home meds (4) Hypertension: continue home meds (5) Hyperlipidemia: continue home meds (6) Diabetes mellitus, type 2: Resume metformin once reliable PO intake SSI PRN A1c 6.9 (7) DVT prophylaxis: As per ortho Subjective Pt feels she is doing as expected. Some pain to the operative site, but what she expected and is tolerating. No issues with PO intake. Pt denies fever, SOB, chest pain, abd pain, n/v/c/d, LE swelling. Review of Systems Review of Systems: Pertinent positives and negatives reviewed in HPI--all others negative Physical Exam Constitutional: WD/WN, vitals as above Eyes: normal visual medina by confrontation and + anicteric sclerae Neck: normal visual inspection and trachea midline Respiratory: normal respiratory effort, lungs clear to auscultation Cardiovascular: Rate/Rhythm: regular rate and regular rhythm Gastrointestinal (Abdomen): Inspection/Auscultation: abdomen not distended Percussion/Palpation: abdomen soft; abdomen nontender Musculoskeletal: Head/Neck/Chest: normocephalic and head atraumatic neg LE swelling Skin: no rashes, warm and dry Neurologic: awake; not confused Speech / Cognition: normal speech Psychiatric: A+Ox3, euthymic affect Results & Data ([facility]) Vital Signs (Past 12 Hours) Vital Signs Temp Pulse Resp BP BP Pulse Ox 10/01/19 07:39 36.4 C L 10/01/19 07:12 61 16 107/73 94 10/01/19 03:11 37.1 C 63 14 110/73 94 PG Care Time/CCT Total # of Minutes Spent Total Time Spent with Patient: Total time spent is greater than 50% in coordination of care (as documented) at patient's floor/unit and/or counseling patient: Coding Level of Care Code 91979 Inpt Consult Level 3 Diagnoses Primary osteoarthritis of right knee M17.11 Sleep apnea G47.30 Hypothyroidism E03.9 Hypertension I10 Hyperlipidemia E78.5 Diabetes mellitus, type 2 E11.9 DVT prophylaxis Z29.9
[2019-10-01] MEDS: SENNA 8.6 MG TAB PO SCH (17:22)
[2019-10-02] MEDS: LEVOTHYROXINE SODIUM 112 MCG TABLET PO SCH (05:11)
[2019-10-02] MEDS: ACETAMINOPHEN 500 MG TAB PO SCH (05:11)
[2019-10-02] MEDS: OXYCODONE HCL IR 5 MG TAB (IMMEDIATE RELEASE) PO PRN (07:44)
[2019-10-02] MEDS: CHOLECALCIFEROL (VITAMIN D) 400 UNITS TABLET PO SCH (07:45)
[2019-10-02] MEDS: ROSUVASTATIN CALCIUM 10 MG TAB PO SCH (07:45)
[2019-10-02] MEDS: LOSARTAN POTASSIUM 50 MG TAB PO SCH (07:45)
[2019-10-02] MEDS: MULTIVITAMIN TAB PO SCH (07:45)
[2019-10-02] MEDS: POTASSIUM CITRATE 10 MEQ TAB PO SCH (07:45)
[2019-10-02] MEDS: DOCUSATE SODIUM 100 MG CAP PO SCH (07:45)
[2019-10-02] MEDS: RIVAROXABAN 10 MG TABLET PO SCH (07:46)
[2019-10-02] MEDS: INSULIN ASPART 100 UNITS/ML 3 ML PEN SC SCH (07:49)
[2019-10-02] MEDS ORDERED: METFORMIN HCL 500 MG TAB PO SCH (08:00)
--- NOTE | 2019-10-02 08:15 | Orthopedic Progress Note ---
Date of Service October 02, 2019 Assessment & Plan (1) S/P total knee arthroplasty: POD#2 Right TKA -Pain management -DVT prophylaxis-Xarelto 10mg QD x 1 mo -PT/OT -Discharge planning-home with outpatient PT. Will discharge with 1 week fo Cefadroxil as antibiotic prophyalxis. Subjective Postop day 2 status post right TKA. Patient is sitting up in bed awake and alert. She is eating breakfast. Pain is controlled although she is having some mild soreness this morning. She denies any shortness of breath, chest pain, lightheadedness, nausea or vomiting. She states that she is hoping to go home today. Physical Exam Physical Exam: Silverlon dressing is clean, dry, and intact. There is minimal drainage in the dressing window. Calves are soft nontender. Neurovascular is intact. Toes are mobile. Results & Data ([facility]) Vital Signs (Past 12 Hours) Vital Signs Temp Pulse Resp BP BP Pulse Ox 10/02/19 06:26 37.0 C 75 18 124/81 93 10/01/19 22:51 37.1 C 75 16 115/78 95 (1) S/P total knee arthroplasty Laterality: right Qualified Code(s): Z96.651 - Presence of right artificial knee joint
--- NOTE | 2019-10-02 12:26 | Hospitalist Progress Note ---
Date of Service October 02, 2019 Assessment & Plan (1) Primary osteoarthritis of right knee: s/p R TKA on 09/[address] Chiang Pre-op Hb 15.2 As per ortho, planning for cefadroxil x1 week for prophylaxis (2) Sleep apnea: States untx (3) Hypothyroidism: continue home meds (4) Hypertension: continue home meds (5) Hyperlipidemia: continue home meds (6) Diabetes mellitus, type 2: Resume metformin once reliable PO intake SSI PRN A1c 6.9 (7) DVT prophylaxis: As per ortho Subjective Pt continues to do well. Having pain to the R knee, but reasonable. She has hx of L TKA and states this is a similar course. Tolerating PO without issue. Pt denies fever, SOB, chest pain, abd pain, n/v/c/d. She has minor swelling around the knee today. Planning for d/c home later today. Review of Systems Review of Systems: Pertinent positives and negatives reviewed in HPI--all others negative Physical Exam Constitutional: WD/WN, vitals as above Eyes: normal visual medina by confrontation and + anicteric sclerae Neck: normal visual inspection and trachea midline Respiratory: normal respiratory effort, lungs clear to auscultation Cardiovascular: Rate/Rhythm: regular rate and regular rhythm Gastrointestinal (Abdomen): Inspection/Auscultation: abdomen not distended Percussion/Palpation: abdomen soft; abdomen nontender Musculoskeletal: Head/Neck/Chest: normocephalic and head atraumatic minor swelling around R knee Skin: no rashes, warm and dry Neurologic: awake; not confused Speech / Cognition: normal speech Psychiatric: A+Ox3, euthymic affect Results & Data ([facility]) Vital Signs (Past 12 Hours) Vital Signs Temp Pulse Resp BP BP Pulse Ox 10/02/19 11:11 99 10/02/19 09:56 37.0 C 75 18 124/81 115/78 93 10/02/19 06:26 37.0 C 75 18 124/81 93 PG Care Time/CCT Total # of Minutes Spent Total Time Spent with Patient: Total time spent is greater than 50% in coordination of care (as documented) at patient's floor/unit and/or counseling patient: Coding Level of Care Code 11432 Inpt Consult Level 2 Diagnoses Primary osteoarthritis of right knee M17.11 Sleep apnea G47.30 Hypothyroidism E03.9 Hypertension I10 Hyperlipidemia E78.5 Diabetes mellitus, type 2 E11.9 DVT prophylaxis Z29.9
--- NOTE | 2019-10-03 15:11 | Discharge Summary ---
Date of Service October 03, 2019 Admission HPI Per Admitting Provider 64 year old female with PMHx significant for HTN, high cholesterol, NEDRA, DM2, and hypothyroidism who presents with worsening right knee pain. She has previously underwent Left TKA and has done well. She has tried various conservative therapies including cortisone injections and viscoelastic injections and continues to have significant pain. She has difficulty completing her daily activities and would like to proceed with right total knee arthroplasty. Patient denies headaches, sweats, fevers, chills, double vision, blurred vision, cough, sore throat, dysphagia, chest pain, sob, wheezing, n/v/d/c, numbness, tingling, fatigue, urinary symptoms, mood disorders. ROS positive for right knee pain and stiffness. Admission Exam Per Admitting Provider Constitutional: well developed and well nourished; no acute distress Eyes: PERRL, conjunctivae normal, anicteric sclerae ENMT: external ear and nose normal, oropharynx normal Neck: trachea midline, no thyromegaly Respiratory: normal respiratory effort, lungs clear to auscultation Cardiovascular: RRR, no murmur, no edema Musculoskeletal: Right knee-Medial joint line tenderness. ROM with crepitus 0-130 with mild crepitus. She is stable to valgus and varus stress tests. Positive Oc's Skin: no rashes, warm and dry Neurologic: patellar DTR's 2+ bilat, sensation intact Psychiatric: A+Ox3, euthymic affect Principal Diagnosis Right knee osteoarthritis Discharge Exam Constitutional well developed and well nourished; no acute distress Eyes PERRL, conjunctivae normal, anicteric sclerae ENMT external ear and nose normal, oropharynx normal Neck trachea midline, no thyromegaly Respiratory normal respiratory effort, lungs clear to auscultation Cardiovascular RRR, no murmur, no edema Skin no rashes, warm and dry Neurologic patellar DTR's 2+ bilat, sensation intact Psychiatric A+Ox3, euthymic affect Discharge Data Allergies Allergy/AdvReac Type Severity Reaction Status Date / Time aspirin Allergy Unknown HIVES, Verified 12/02/14 08:26 SWELLING OF THROAT latex Allergy Unknown HIVES Verified 12/02/14 08:26 methylprednisolone Allergy Shakiness Verified 09/30/19 08:27 [From Medrol] Consultations 09/30/19 13:14 Consult Case Management - Discharge Planning Routine Consult Hospitalist Routine Procedures Performed Operation Date: 09/30/19 09:55 Actual Procedures p Right Total Knee Arthroplasty(Right) - Ronak Chiang MD Ordered Studies 09/30/19 05:00 US - OR guided needle placemen Routine Hospital Course (1) S/P total knee arthroplasty: Patient presented for same day admission following Right total knee arthroplasty on 09/30/19. She tolerated procedure well. The Patient had an uneventful hospital course. Post-operatively, her activity was progressed and well tolerated. They participated in PT with ambulation distance of 320 feet. ROM of operative knee reached 90 degrees. Labs remained stable- lowest hemoglobin recorded: 12.5. Dr. Sonia Marie of medical service was consulted for medical management during admission. Pain controlled on oral medications. Please refer to daily progress notes and PT notes for complete details. After exam on 10/02/19, patient was felt to be stable for discharge home with plans on outpatient PT. She was discharged with 1 week of Cefadroxil for antibiotic prophylaxis with her history of diabetes. Patient will f/u in the office in about 2 weeks for further evaluation including x-rays and incision check, sooner if having any issues or concerns. Lab Results 09/10/19 09/10/19 09/10/19 Range/Units 14:26 14:26 14:26 WBC 9.44 (4.8-10.8) K/uL RBC 4.86 (4.2-5.4) M/uL Hgb 15.2 (12.0-16.0) g/dL Hct 44.6 (37-47) % MCV 91.8 (80-100) fL MCH 31.3 (25-34) pg MCHC 34.1 (32-36) g/dL RDW Std Deviation 47.1 H (36.4-46.3) fL RDW Coeff of Chiquita 14.0 (11.5-14.5) % Plt Count 296 (130-400) K/uL MPV 10.5 H (7.4-10.4) fL Immature Gran % (Auto) 0.2 % Neut % (Auto) 48.1 % Lymph % (Auto) 38.6 % [place] % (Auto) 10.1 % Eos % (Auto) 2.5 % Baso % (Auto) 0.5 % Immature Gran # (Auto) 0.02 (0.00-0.02) K/uL Neut # (Auto) 4.54 (1.4-6.5) K/uL Lymph # (Auto) 3.64 H (1.2-3.4) K/uL [place] # (Auto) 0.95 H (0.11-0.59) K/uL Eos # (Auto) 0.24 (0-0.5) K/uL Baso # (Auto) 0.05 (0-0.2) K/uL PT 10.4 (9.0-12.0) Seconds INR 1.0 (0.9-1.1) APTT 26.9 (21.0-31.0) Seconds PTT Ratio 1.0 Sodium 137 (136-145) mmol/L Potassium 4.4 (3.5-5.1) mmol/L Chloride 105 (98-107) mmol/L Carbon Dioxide 30 (21-32) mmol/L Anion Gap 2.0 L (3-11) BUN 16 (7-18) mg/dl Creatinine 0.86 (0.6-1.2) mg/dl Est Cr Clr Drug Dosing 75.3 ml/min Est GFR ( Amer) 82.7 Est GFR (Non-Af Amer) 71.4 BUN/Creatinine Ratio 18.7 (10-20) Glucose 127 H (70-99) mg/dl POC Glucose (70-99) mg/dl Estimat Average Glucose mg/dl Hemoglobin A1c (4.5-5.6) % Calcium 10.5 H (8.5-10.1) mg/dl Albumin 3.6 (3.4-5.0) gm/dl Urine Color Urine Appearance (Clear) Urine pH (4.5-7.5) Ur Specific [place] (1.000-1.030) Urine Protein (Negative) Urine Glucose (UA) (Negative) Urine Ketones (Negative) Urine Blood (Negative) Urine Nitrite (Negative) Urine Bilirubin (Negative) Urine Urobilinogen (Negative) Ur Leukocyte Esterase (Negative) Urine WBC (Auto) (0-5) /hpf Urine RBC (Auto) (0-4) /hpf U Hyaline Cast (Auto) (0-5) /lpf U Epithel Cells (Auto) (0-5) /lpf Urine Bacteria (Auto) (Negative) Blood Type Antibody Screen 09/10/19 09/10/19 09/10/19 Range/Units 14:26 14:26 14:26 WBC (4.8-10.8) K/uL RBC (4.2-5.4) M/uL Hgb (12.0-16.0) g/dL Hct (37-47) % MCV (80-100) fL MCH (25-34) pg MCHC (32-36) g/dL RDW Std Deviation (36.4-46.3) fL RDW Coeff of Chiquita (11.5-14.5) % Plt Count (130-400) K/uL MPV (7.4-10.4) fL Immature Gran % (Auto) % Neut % (Auto) % Lymph % (Auto) % [place] % (Auto) % Eos % (Auto) % Baso % (Auto) % Immature Gran # (Auto) (0.00-0.02) K/uL Neut # (Auto) (1.4-6.5) K/uL Lymph # (Auto) (1.2-3.4) K/uL [place] # (Auto) (0.11-0.59) K/uL Eos # (Auto) (0-0.5) K/uL Baso # (Auto) (0-0.2) K/uL PT (9.0-12.0) Seconds INR (0.9-1.1) APTT (21.0-31.0) Seconds PTT Ratio Sodium (136-145) mmol/L Potassium (3.5-5.1) mmol/L Chloride (98-107) mmol/L Carbon Dioxide (21-32) mmol/L Anion Gap (3-11) BUN (7-18) mg/dl Creatinine (0.6-1.2) mg/dl Est Cr Clr Drug Dosing ml/min Est GFR ( Amer) Est GFR (Non-Af Amer) BUN/Creatinine Ratio (10-20) Glucose (70-99) mg/dl POC Glucose (70-99) mg/dl Estimat Average Glucose 151 mg/dl Hemoglobin A1c 6.9 H (4.5-5.6) % Calcium (8.5-10.1) mg/dl Albumin (3.4-5.0) gm/dl Urine Color Yellow Urine Appearance Turbid A (Clear) Urine pH 7.0 (4.5-7.5) Ur Specific [place] 1.018 (1.000-1.030) Urine Protein Negative (Negative) Urine Glucose (UA) Negative (Negative) Urine Ketones Negative (Negative) Urine Blood Negative (Negative) Urine Nitrite Negative (Negative) Urine Bilirubin Negative (Negative) Urine Urobilinogen Negative (Negative) Ur Leukocyte Esterase Negative (Negative) Urine WBC (Auto) 1-5 (0-5) /hpf Urine RBC (Auto) 0-4 (0-4) /hpf U Hyaline Cast (Auto) 1-5 (0-5) /lpf U Epithel Cells (Auto) 5-10 H (0-5) /lpf Urine Bacteria (Auto) Negative (Negative) Blood Type O Positive Antibody Screen NEGATIVE 09/30/19 09/30/19 09/30/19 Range/Units 08:28 12:09 13:43 WBC (4.8-10.8) K/uL RBC (4.2-5.4) M/uL Hgb (12.0-16.0) g/dL Hct (37-47) % MCV (80-100) fL MCH (25-34) pg MCHC (32-36) g/dL RDW Std Deviation (36.4-46.3) fL RDW Coeff of Chiquita (11.5-14.5) % Plt Count (130-400) K/uL MPV (7.4-10.4) fL Immature Gran % (Auto) % Neut % (Auto) % Lymph % (Auto) % [place] % (Auto) % Eos % (Auto) % Baso % (Auto) % Immature Gran # (Auto) (0.00-0.02) K/uL Neut # (Auto) (1.4-6.5) K/uL Lymph # (Auto) (1.2-3.4) K/uL [place] # (Auto) (0.11-0.59) K/uL Eos # (Auto) (0-0.5) K/uL Baso # (Auto) (0-0.2) K/uL PT (9.0-12.0) Seconds INR (0.9-1.1) APTT (21.0-31.0) Seconds PTT Ratio Sodium (136-145) mmol/L Potassium (3.5-5.1) mmol/L Chloride (98-107) mmol/L Carbon Dioxide (21-32) mmol/L Anion Gap (3-11) BUN (7-18) mg/dl Creatinine (0.6-1.2) mg/dl Est Cr Clr Drug Dosing ml/min Est GFR ( Amer) Est GFR (Non-Af Amer) BUN/Creatinine Ratio (10-20) Glucose (70-99) mg/dl POC Glucose 182 H 164 H 197 H (70-99) mg/dl Estimat Average Glucose mg/dl Hemoglobin A1c (4.5-5.6) % Calcium (8.5-10.1) mg/dl Albumin (3.4-5.0) gm/dl Urine Color Urine Appearance (Clear) Urine pH (4.5-7.5) Ur Specific [place] (1.000-1.030) Urine Protein (Negative) Urine Glucose (UA) (Negative) Urine Ketones (Negative) Urine Blood (Negative) Urine Nitrite (Negative) Urine Bilirubin (Negative) Urine Urobilinogen (Negative) Ur Leukocyte Esterase (Negative) Urine WBC (Auto) (0-5) /hpf Urine RBC (Auto) (0-4) /hpf U Hyaline Cast (Auto) (0-5) /lpf U Epithel Cells (Auto) (0-5) /lpf Urine Bacteria (Auto) (Negative) Blood Type Antibody Screen 09/30/19 09/30/19 10/01/19 Range/Units 17:02 20:45 04:40 WBC 15.18 H (4.8-10.8) K/uL RBC 4.08 L (4.2-5.4) M/uL Hgb 12.5 (12.0-16.0) g/dL Hct 36.7 L (37-47) % MCV 90.0 (80-100) fL MCH 30.6 (25-34) pg MCHC 34.1 (32-36) g/dL RDW Std Deviation 46.0 (36.4-46.3) fL RDW Coeff of Chiquita 14.0 (11.5-14.5) % Plt Count 241 (130-400) K/uL MPV 10.3 (7.4-10.4) fL Immature Gran % (Auto) % Neut % (Auto) % Lymph % (Auto) % [place] % (Auto) % Eos % (Auto) % Baso % (Auto) % Immature Gran # (Auto) (0.00-0.02) K/uL Neut # (Auto) (1.4-6.5) K/uL Lymph # (Auto) (1.2-3.4) K/uL [place] # (Auto) (0.11-0.59) K/uL Eos # (Auto) (0-0.5) K/uL Baso # (Auto) (0-0.2) K/uL PT (9.0-12.0) Seconds INR (0.9-1.1) APTT (21.0-31.0) Seconds PTT Ratio Sodium (136-145) mmol/L Potassium (3.5-5.1) mmol/L Chloride (98-107) mmol/L Carbon Dioxide (21-32) mmol/L Anion Gap (3-11) BUN (7-18) mg/dl Creatinine (0.6-1.2) mg/dl Est Cr Clr Drug Dosing ml/min Est GFR ( Amer) Est GFR (Non-Af Amer) BUN/Creatinine Ratio (10-20) Glucose (70-99) mg/dl POC Glucose 252 H 214 H (70-99) mg/dl Estimat Average Glucose mg/dl Hemoglobin A1c (4.5-5.6) % Calcium (8.5-10.1) mg/dl Albumin (3.4-5.0) gm/dl Urine Color Urine Appearance (Clear) Urine pH (4.5-7.5) Ur Specific [place] (1.000-1.030) Urine Protein (Negative) Urine Glucose (UA) (Negative) Urine Ketones (Negative) Urine Blood (Negative) Urine Nitrite (Negative) Urine Bilirubin (Negative) Urine Urobilinogen (Negative) Ur Leukocyte Esterase (Negative) Urine WBC (Auto) (0-5) /hpf Urine RBC (Auto) (0-4) /hpf U Hyaline Cast (Auto) (0-5) /lpf U Epithel Cells (Auto) (0-5) /lpf Urine Bacteria (Auto) (Negative) Blood Type Antibody Screen 10/01/19 10/01/19 10/01/19 Range/Units 04:40 08:28 11:52 WBC (4.8-10.8) K/uL RBC (4.2-5.4) M/uL Hgb (12.0-16.0) g/dL Hct (37-47) % MCV (80-100) fL MCH (25-34) pg MCHC (32-36) g/dL RDW Std Deviation (36.4-46.3) fL RDW Coeff of Chiquita (11.5-14.5) % Plt Count (130-400) K/uL MPV (7.4-10.4) fL Immature Gran % (Auto) % Neut % (Auto) % Lymph % (Auto) % [place] % (Auto) % Eos % (Auto) % Baso % (Auto) % Immature Gran # (Auto) (0.00-0.02) K/uL Neut # (Auto) (1.4-6.5) K/uL Lymph # (Auto) (1.2-3.4) K/uL [place] # (Auto) (0.11-0.59) K/uL Eos # (Auto) (0-0.5) K/uL Baso # (Auto) (0-0.2) K/uL PT (9.0-12.0) Seconds INR (0.9-1.1) APTT (21.0-31.0) Seconds PTT Ratio Sodium 135 L (136-145) mmol/L Potassium 3.9 (3.5-5.1) mmol/L Chloride 102 (98-107) mmol/L Carbon Dioxide 29 (21-32) mmol/L Anion Gap 4.0 (3-11) BUN 25 H (7-18) mg/dl Creatinine 1.00 (0.6-1.2) mg/dl Est Cr Clr Drug Dosing 63.6 ml/min Est GFR ( Amer) 69.0 Est GFR (Non-Af Amer) 59.5 BUN/Creatinine Ratio 25.1 H (10-20) Glucose 149 H (70-99) mg/dl POC Glucose 130 H 140 H (70-99) mg/dl Estimat Average Glucose mg/dl Hemoglobin A1c (4.5-5.6) % Calcium 9.4 (8.5-10.1) mg/dl Albumin (3.4-5.0) gm/dl Urine Color Urine Appearance (Clear) Urine pH (4.5-7.5) Ur Specific [place] (1.000-1.030) Urine Protein (Negative) Urine Glucose (UA) (Negative) Urine Ketones (Negative) Urine Blood (Negative) Urine Nitrite (Negative) Urine Bilirubin (Negative) Urine Urobilinogen (Negative) Ur Leukocyte Esterase (Negative) Urine WBC (Auto) (0-5) /hpf Urine RBC (Auto) (0-4) /hpf U Hyaline Cast (Auto) (0-5) /lpf U Epithel Cells (Auto) (0-5) /lpf Urine Bacteria (Auto) (Negative) Blood Type Antibody Screen 10/01/19 10/01/19 10/02/19 Range/Units 17:11 20:52 06:24 WBC (4.8-10.8) K/uL RBC (4.2-5.4) M/uL Hgb (12.0-16.0) g/dL Hct (37-47) % MCV (80-100) fL MCH (25-34) pg MCHC (32-36) g/dL RDW Std Deviation (36.4-46.3) fL RDW Coeff of Chiquita (11.5-14.5) % Plt Count (130-400) K/uL MPV (7.4-10.4) fL Immature Gran % (Auto) % Neut % (Auto) % Lymph % (Auto) % [place] % (Auto) % Eos % (Auto) % Baso % (Auto) % Immature Gran # (Auto) (0.00-0.02) K/uL Neut # (Auto) (1.4-6.5) K/uL Lymph # (Auto) (1.2-3.4) K/uL [place] # (Auto) (0.11-0.59) K/uL Eos # (Auto) (0-0.5) K/uL Baso # (Auto) (0-0.2) K/uL PT (9.0-12.0) Seconds INR (0.9-1.1) APTT (21.0-31.0) Seconds PTT Ratio Sodium (136-145) mmol/L Potassium (3.5-5.1) mmol/L Chloride (98-107) mmol/L Carbon Dioxide (21-32) mmol/L Anion Gap (3-11) BUN (7-18) mg/dl Creatinine (0.6-1.2) mg/dl Est Cr Clr Drug Dosing ml/min Est GFR ( Amer) Est GFR (Non-Af Amer) BUN/Creatinine Ratio (10-20) Glucose (70-99) mg/dl POC Glucose 115 H 152 H 114 H (70-99) mg/dl Estimat Average Glucose mg/dl Hemoglobin A1c (4.5-5.6) % Calcium (8.5-10.1) mg/dl Albumin (3.4-5.0) gm/dl Urine Color Urine Appearance (Clear) Urine pH (4.5-7.5) Ur Specific [place] (1.000-1.030) Urine Protein (Negative) Urine Glucose (UA) (Negative) Urine Ketones (Negative) Urine Blood (Negative) Urine Nitrite (Negative) Urine Bilirubin (Negative) Urine Urobilinogen (Negative) Ur Leukocyte Esterase (Negative) Urine WBC (Auto) (0-5) /hpf Urine RBC (Auto) (0-4) /hpf U Hyaline Cast (Auto) (0-5) /lpf U Epithel Cells (Auto) (0-5) /lpf Urine Bacteria (Auto) (Negative) Blood Type Antibody Screen Total Time Total Time Spent Total Time Spent (In Minutes): 20 Discharge Plan Discharge Items Patient Disposition: Home - Self-Care Reason For Visit: Right Knee Osteoarthritis Discharge Diagnosis: Right knee osteoarthritis Activity: Per Instructions section Weightbearing: Full weightbearing Weightbearing Comment: As tolerated with walker Non-emergency contact: Surgeon Call non-emergency contact if: your pain is not controlled, your temperature is above 101.5, your wound has increased redness and your wound has increased papo ayala Follow-up/Referrals: Toney Leblanc D.O. [Primary Care Provider] - Diet: Carb Consistent or DM2 Addtl Attending Provider Instructions: ACTIVITY RECOMMENDATIONS: SELF CARE INSTRUCTIONS AFTER TOTAL KNEE REPLACEMENT A. You may need to continue a physical therapy program after discharge from the hospital. There are several options available to you. Your doctor will assist you in selecting the best one for you. 1. An out-patient facility 2 to 3 times a week for therapy or home therapy. 2. Continue working on all exercises taught to you in the hospital. Your goals should be to increase bending of your knee to 90 degrees and beyond and to fully straighten your knee. B. You may progress at your own pace from walking with a walker or crutches to a cane; then to no assistive devices. C. Make walking a part of your daily routine. Be up as much as comfortable with rest periods throughout the day. Rest with leg elevation is very important. Use the ice wrap frequently for the first 3-4 weeks. D. There are no restrictions on activities. You may ride in a car, shop, participate in beader tender and all social activities. E. Wear the long elastic stockings (NELL hose) 20 hours a day for 2 weeks after surgery. They can be removed several times a day for laundering and for a bath. F. You may shower, no tub baths until cleared by your doctor. SPECIAL CARE INSTRUCTIONS: VERY IMPORTANT TO READ AND REVIEW A. There are a few signs you need to watch for after you are home. Call [facility] if you notice any of the followin. Increased severe knee pain. Some pain is expected especially when you exercise. 2. Increased swelling in your leg or knee; pain or swelling of the calf muscle in either lower leg. 3. Any fluid drainage from the incision. 4. Shortness of breath or chest pain. B. Please call [facility] at if you have any concerns or questions about your operation or recovery. The doctor or his nurse will return your call promptly. C. You must take antibiotics before dental work, bladder, bowel or other surgery. Your doctor will provide you with a permanent care to carry describing this precaution. IMPORTANT: * REMEMBER TO TAKE ASPIRIN, 81 MG, TWICE DAILY FOR 4 WEEKS UNLESS OTHERWISE DIRECTED. THIS IS YOUR BLOOD THINNER. * HIGH RISK PATIENTS MAY BE PRESCRIBED A STRONGER BLOOD THINNER. THIS WILL BE PROVIDED AT DISCHARGE. * CALL IF INCREASED PAIN, REDNESS, DRAINAGE OR FEVER GREATER THAT 101. * WEAR NELL HOSE 20 HOURS PER DAY FOR 2 WEEKS. This is a mesh tape dressing that is covered with glue. It should remain in place until the incision is properly healed, usually 10-14 days. This dressing is designed to naturally slough off. You may trim the excess mesh tape as it peels off. Incision may be briefly wet in a shower. Dry immediately by blotting with a clean, dry towel. Do not bath or swim until instructed by your doctor. Do not scratch, rub, or pick at the dressing. Do not apply any topical ointments or lotions until dressing is completely removed and/or instructed by your doctor. There may be a small piece of suture material at one end of your incision. Do not pull or trim this. If it is bothersome or catching on clothing, you may cover it with a band-aid. This is a large adhesive bandage that contains silver ions. This helps your incision heal by fighting off bacteria and protecting it from the outside environment. You are permitted to shower with this dressing. This will remain on your incision for 7 days and then should be removed. Some visible blood or drainage through the dressing window is normal. If there is significant drainage or leaking noted before the 7 days notify your doctor's office immediately. Once removed, keep incision clean and dry. If there is any drainage or redness noted, please call your surgeon. FOLLOW UP VISIT: If appointment is not already scheduled: Please call [facility] to make a follow-up appointment for 2 weeks after your surgery at . Stand-Alone Forms: My [facility] [place], Opioid Pain Management, Smoking Cessation Medications and DC Order Prescriptions: New cefadroxil 500 mg capsule 500 mg PO BID Qty: 14 RF: 0 Xarelto 10 mg Tablet 10 mg PO DAILY Qty: 30 RF: 0 acetaminophen 500 mg Tablet 1,000 mg PO Q8 14 Days Qty: 84 RF: 0 oxycodone 5 mg Tablet 5 mg PO Q4H PRN (Reason: pain) Qty: 18 RF: 0 sennosides [Senokot] 8.6 mg Tablet 17.2 mg PO HS Qty: 30 RF: 0 Continued losartan 50 mg Tablet 50 mg PO QAM RF: 0 metformin 500 mg Tablet 500 mg PO BID RF: 0 metronidazole 0.75 % Lotion 1 applic TOPICAL DAILY RF: 0 potassium citrate 10 mEq (1,080 mg) Tablet Extended Release 10 meq PO BID RF: 0 pseudoephedrine HCl 30 mg Tablet 30 mg PO Q6H PRN (Reason: ALLERGIES) RF: 0 levothyroxine 112 mcg Tablet 112 mcg PO QAM RF: 0 rosuvastatin 10 mg Tablet 10 mg PO QAM RF: 0 cholecalciferol (vitamin D3) [Vitamin D3] 50 mcg (2,000 unit) Capsule 50 mcg PO QAM RF: 0 Discontinued acetaminophen 500 mg Tablet 500 mg PO DAILY PRN (Reason: Pain) RF: 0 Discharge Orders: Discharge Order (Routine); Ordered 10/02/19 Ordered By: Matteo Browne/Other Patient Handouts: Surgery Prevent DVT After Admission Data Admit Date/Time: 09/30/19 12:11 Attending Provider: Ronak Chiang Admit Provider: Ronak Chiang Primary Care Provider: Toney Leblanc Other Providers: Janelle Patrick Other Interventions: Discharge Summary Assessment (RN) Last Done: 10/02/19 09:56 DC Date/Time DO NOT enter until pt leaves facility: 10/02/19 12:34
== END 2019-10-02 12:34 | disposition home or self-care (01) | DRG 470 ==
LOC: ASU 08:04 → INTOOBSV 12:11 → 3E 12:11